=== PATIENT | male | born 1985 | race African-American/Black ===

== ENCOUNTER 2016-11-02 11:27 | Emergency (ER) | payer OTHER ==
[~2016-11-02 11:27] MED LIST: DOXYCYCLINE HY100 M1 PO
[2016-11-02 12:39] LABS: URINE SOURCE CLEAN CATCH
[2016-11-02 12:44] LABS: URINE APPEARANCE CLEAR; URINE BILIRUBIN NEG (NEG); URINE BLOOD NEG (NEG); URINE COLOR YELLOW; URINE GLUCOSE NEG (NEG); URINE KETONE NEG (NEG); URINE LEUKOCYTE ESTERASE 2+ (NEG); URINE NITRATE NEG (NEG); URINE PH 6.5 (5-8); URINE PROTEIN NEG (NEG); URINE SPECIFIC GRAVITY 1.025 (1.003-1.035)
[2016-11-02 12:46] LABS: CULTURE INDICATED? YES; URINE BACTERIA AUWI NEG (NEGATIVE); URINE SQUAMOUS EPITHELIAL CELL NONE SEEN /[HPF]; UWBCS1 AUWI 50-100 (0-5)
[2016-11-02 12:56] LABS: URINE MUCUS PRESENT
[2016-11-02 12:57] LABS: URINE TRICHOMONAS NEGATIVE
[2016-11-04 08:26] LABS: CHLAMYDIA TRACH Not Detected (Not Detected); N GONOR Detected (Not Detected)
== END 2016-11-02 13:15 | disposition home or self-care (01) ==
LOC: CFTX 11:27 → CED 11:27 → CFTX 12:21
PROVIDERS: Nurse Practitioner
DX: R30.0 Dysuria (principal); R36.9 Urethral discharge, unspecified; F17.210 Nicotine dependence, cigarettes, uncomplicated; Z88.8 Allergy status to other drugs, medicaments and biological substances
CPT/HCPCS: 81003; 87086; 87491; 87591; 96372; 99283; J0696